=== PATIENT | female | born 1955 | race Caucasian/White ===

== ENCOUNTER 2016-11-22 06:05 | Inpatient (IN) | payer OTHER ==
[2016-11-03 13:50] VITALS: BMI 38.0
--- NOTE | 2016-11-03 14:16 | PAT Medication Instructions ---
Service Date Nov 03, 2016. Current Home Medication List Acetaminophen/Codeine (Tylenol W/Codeine #3), 2 TAB PO QID PRN for Pain Rosuvastatin Calcium (Crestor), 10 MG PO HS Medication Instructions For Your Scheduled Surgery - Take the following medications the morning of surgery with a sip of water: Acetaminophen/Codeine (Tylenol W/Codeine #3), 2 TAB PO QID PRN for Pain (can take up to four hours prior to surgery if needed) Tylenol (if needed) - Take the following medications as scheduled the night before surgery: Acetaminophen/Codeine (Tylenol W/Codeine #3), 2 TAB PO QID PRN for Pain Rosuvastatin Calcium (Crestor), 10 MG PO HS Tylenol (if needed) If you have any questions please call us at [phone] or [phone] ( [place]) or [phone]
[2016-11-03 14:38] LABS: BASO % 0.6 %; BASO ABS # 0.03 K/uL (0-0.2); COMPLETE YES; EOS % 3.7 %; HEMATOCRIT 41.9 % (37-47); IG% 0.2 %; LYMPH % 33.8 %; LYMPH ABS # 1.66 K/uL (1.2-3.4); MEAN CELL VOLUME 90.5 fL (80-100); MEAN CORPUSCULAR HEMOGLOBIN 32.4 pg (25-34); MEAN CORPUSCULAR HGB CONC 35.8 g/dl (32-36); MEAN PLATELET VOLUME 12.1 fL (7.4-10.4); MONO % 7.3 %; NEUT % 54.4 %; PLATELET COUNT 158 K/uL (130-400); RED BLOOD COUNT 4.63 M/uL (4.2-5.4); WHITE BLOOD COUNT 4.91 K/uL (4.8-10.8)
[2016-11-03 14:47] LABS: INR 1.1 (0.9-1.1); PARTIAL THROMBOPLASTIN RATIO 1.1; PROTHROMBIN TIME (PATIENT) 11.5 SECONDS (9.0-12.0)
[2016-11-03 14:54] LABS: BUN/CREATININE RATIO 12.8 (10-20); CREATININE 0.69 mg/dl (0.60-1.20); POTASSIUM 3.6 mmol/L (3.5-5.1)
[2016-11-03 14:57] LABS: URINE APPEARANCE CLEAR (CLEAR); URINE BILIRUBIN NEG (NEG); URINE COLOR YELLOW; URINE NITRITE NEG (NEG); URINE SPECIFIC GRAVITY 1.019 (1.000-1.030); UROBILINOGEN NEG (NEG); ZZUR CULT IF INDIC CLEAN CATCH NO
[2016-11-03 15:04] LABS: MANUAL MICROSCOPIC REQUIRED? NO; REVIEW REQ? NO
[2016-11-03 15:08] LABS: CALCIUM 9.9 mg/dl (8.5-10.1)
[2016-11-04 06:32] LABS: ESTIMATED AVERAGE GLUCOSE 117 mg/dl; HA1C FLAG Normal (Normal)
--- NOTE | 2016-11-21 14:22 | HISTORY & PHYSICAL EXAMINATION ---
DATE OF ADMISSION: 11/22/2016 CHIEF COMPLAINT: Left knee pain. HISTORY OF PRESENT ILLNESS: Imani is a 61-year-old female with a 5-year history of left knee pain. She rates her pain 10/10. She has pain with her daily activities. She has limited standing and walking tolerance. Pain is worse with weightbearing. The patient has had injections, bracing and home exercise program and Tylenol over the years without relief. She has failed conservative treatment and is scheduled for left knee replacement. PAST MEDICAL HISTORY: Hypercholesterolemia. She denies heart disease, diabetes or DVT. PAST SURGICAL HISTORY: Hysterectomy, right knee replacement and melanoma excision. SOCIAL HISTORY: The patient denies alcohol or tobacco use. She lives in a single home. She is and works as a customer training specialist. FAMILY HISTORY: Negative for DVT. MEDICATIONS: Rosuvastatin 10 mg, Tylenol #3 p.r.n. ALLERGIES: TAPE. REVIEW OF SYSTEMS: See HPI. Ten other systems reviewed and all are negative. PHYSICAL EXAMINATION: VITAL SIGNS: Height 5 foot 6 inches, weight 243 pounds, BMI is 39. GENERAL: This is a well-developed, well-nourished female who is alert and oriented x3. Mood and affect are appropriate. HEAD, EYES, EARS, NOSE, AND THROAT: Normocephalic, atraumatic. Mucous membranes are moist and intact. NECK: Supple without lymphadenopathy. HEART: Regular rate and rhythm without murmurs, rubs or gallops. LUNGS: Clear to auscultation without wheezes or rhonchi. ABDOMEN: Soft and nontender. Bowel sounds are equal and active. EXTREMITIES: No ecchymosis, redness or warmth. Thigh and calf are soft and nontender. She has neutral alignment. Range of motion is from 0-115 degrees with no laxity. She is neurovascularly intact with +5/5 strength. X-RAY EXAMINATION: AP and lateral views show joint space narrowing and osteophyte formation in the medial compartment. IMPRESSION: Degenerative joint disease left knee. PLAN: The patient will be admitted for a left total knee arthroplasty. We will plan on aspirin for DVT prophylaxis. PCP is Dr. Ponce at [facility]. She will have [facility] for home physical therapy.
[~2016-11-22] VITALS: Ht 167.6 cm; Wt 111.1 kg
[2016-11-22] VITALS (9 sets, daily range): BP systolic 104–151; BP diastolic 61–86; PULSE 60–76; TEMP 36.4–36.8; O2SAT 93–97; Ht 167.6 cm; Wt 111.1 kg
[~2016-11-22 06:05] MED LIST: ACET-749 PO; ACETAMINOPHEN 500 MG TAB PO SCH; CEFAZOLIN 2000 MG/60 ML D5W 60 ML IV SCH; CRS/10 PO; CeleBREX 200 MG CAP PO SCH; DEXAMETHASONE 4 MG TAB PO SCH; FAMOTIDINE 20 MG TAB PO SCH; GABAPENTIN 300 MG CAP PO SCH; LACTATED RINGER'S 1000ML 1,000 ML IV SCH; LACTATED RINGER'S 1000ML 500 ML IV ONE; LACTATED RINGER'S 1000ML IV SCH; METOCLOPRAMIDE HCL 10 MG TAB PO SCH; OXYCODONE HCL 10 MG TABCR (OXYCONTIN) PO SCH; POLYMYXIN B SULFATE 100,000 UNITS in NSS 100ML IR SCH; ROPIVACAINE 5MG/ML 30 ML 150 MG, BUPIVACAINE/EPINEPHR 0.5% MPF 30 ML, KETOROLAC TROMETH... INFIL SCH; VANCOMYCIN INJ 400 MG in NSS 100ML IR SCH
[2016-11-22] MEDS ORDERED: BUPIVACAINE 0.5 % 5 MG/1 ML PF 10ML VIAL ONE (06:32)
[2016-11-22] MEDS ORDERED: BUPIVACAINE 0.25% 30 ML VIAL ONE (06:33)
[2016-11-22] MEDS ORDERED: FENTANYL CITRATE INJ 50 MCG/1 ML 2 ML VIAL ONE (06:40)
[2016-11-22] MEDS ORDERED: MIDAZOLAM HCL 1 MG/ML 2ML VIAL ONE (06:40)
--- NOTE | 2016-11-22 07:04 | History & Physical Bridge Note ---
H&P Re-Evaluation Bridge Note: I have examined the patient, reviewed the History & Physical and in the interval since the performance of the History & Physical I have noted the following changes of clinical significance: No changes noted
[2016-11-22] MEDS ORDERED: ORTHO JOINT ANESTHETIC ONE (07:11)
[2016-11-22] MEDS ORDERED: BUPIVACAINE/EPINEPHRINE 0.25% 1:200,000 30 ML VIAL ONE (07:11)
[2016-11-22] MEDS ORDERED: POVIDONE-IODINE OP SOLN 30 ML BTL ONE (07:11)
[2016-11-22] MEDS ORDERED: BACITRACIN 50000 UNIT VIAL ONE (07:12)
[2016-11-22] MEDS ORDERED: LACTATED RINGER'S 1000ML 1,000 ML IV PRN (07:55)
[2016-11-22] MEDS ORDERED: FENTANYL CITRATE INJ 50 MCG/1 ML 2 ML VIAL IV PRN (08:00)
[2016-11-22] MEDS ORDERED: ONDANSETRON INJ 2 MG/ML 2 ML VIAL IV PRN ×2 (08:00→10:00)
[2016-11-22] MEDS: TRANEXAMIC ACID INJ 1,000 MG in SODIUM CHLORIDE 0.9% 100ML 100 ML IV SCH ×2 (08:10→10:26)
[2016-11-22] MEDS ORDERED: METOPROLOL TARTRATE 1 MG/ML VIAL ONE (09:18)
[2016-11-22] MEDS ORDERED: PROPOFOL IV EMULSION 10 MG/ML 20 ML VIAL IV ONE (09:18)
[2016-11-22] MEDS ORDERED: LIDOCAINE HCL 2% 2 ML VIAL (20MG/ML) ONE (09:18)
[2016-11-22] MEDS ORDERED: LABETALOL HCL IV 5 MG/ML 20ML IV ONE (09:18)
--- NOTE | 2016-11-22 09:56 | [facility] Post Operative Brief Note ---
Immediate Operative Summary Operative Date November 22, 2016. Pre-Operative Diagnosis Left Knee Degenerative Joint Disease Post-Operative Diagnosis Left Knee Degenerative Joint Disease MORBID OBESITY Procedure(s) Performed Left Total Knee Arthroplasty, Cemented Surgeon Dr. Adam Garza Director Pharmaceutical Surgeon(s) Cain Rivera PA-C Estimated Blood Loss 100 mL Findings DJD OBESE Specimens A: Left Knee Bone and Tissue Complication(s) None Disposition Recovery Room / PACU
[2016-11-22] MEDS ORDERED: SOD PHOSPHATE/SOD BIPHOSPHATE ENEMA 132 ML BTL PR PRN (10:00)
[2016-11-22] MEDS ORDERED: ALUMINUM/MAGNESIUM/SIMETH (MAALOX MAX) 30 ML UDC PO PRN (10:00)
[2016-11-22] MEDS ORDERED: METOCLOPRAMIDE HCL INJ 5 MG/ML 2 ML VIAL IV PRN (10:00)
[2016-11-22] MEDS ORDERED: KETOROLAC TROMETHAMINE 30 MG/ML VIAL IV. PRN (10:00)
[2016-11-22] MEDS ORDERED: ZOLPIDEM TARTRATE 5 MG TAB PO PRN (10:00)
[2016-11-22] MEDS ORDERED: MoRPHine SULFATE 2 MG/ML CARP IV PRN (10:00)
[2016-11-22] MEDS ORDERED: MAGNESIUM HYDROXIDE SUSP 30 ML UDC PO PRN (10:00)
[2016-11-22] MEDS ORDERED: DiphenhydrAMINE HCL 50 MG/ML VIAL IV PRN (10:00)
[2016-11-22] MEDS ORDERED: TRAMADOL HCL 50 MG TAB PO PRN (10:00)
[2016-11-22] MEDS ORDERED: OXYCODONE HCL IR 5 MG TAB (IMMEDIATE RELEASE) PO PRN (10:00)
[2016-11-22] MEDS ORDERED: BISACODYL 10 MG SUPP PR PRN (10:00)
--- NOTE | 2016-11-22 11:05 | DIAGNOSTIC IMAGING REPORT ---
LEFT KNEE 1 OR 2 VIEWS ROUTINE CLINICAL HISTORY: AP/LATERAL IN PACU LEFT KNEE joint replacement COMPARISON: None. DISCUSSION: Status post total left knee replacement. Good contact between prosthetic and Bone. Surgical drains are in position. There is no evidence for soft tissue swelling. IMPRESSION: Anatomic alignment status post total left knee replacement. Electronically signed by: Severo Ellsworth M.D. 11/22/2016 11:04 AM Dictated Date/Time: 11/22/2016 11:03 AM
--- NOTE | 2016-11-22 11:54 | Anesthesiology Progress Note ---
Anesthesia Post Op Note Date & Time November 22, 2016 at 11:54 Vital Signs Pain Intensity: 0 Vital Signs Past 12 Hours Date Time Temp Pulse Resp B/P Pulse Ox O2 Delivery O2 Flow Rate FiO2 11/22/16 11:30 64 18 122/69 95 Nasal Cannula 3 11/22/16 11:20 36.7 63 18 130/60 95 Nasal Cannula 3 11/22/16 11:10 62 18 130/65 98 Nasal Cannula 3 11/22/16 11:00 61 18 117/61 98 Mask 5 11/22/16 10:50 60 16 109/60 98 Mask 10 11/22/16 10:40 37.0 73 16 125/64 98 Mask 10 11/22/16 06:53 36.8 76 18 151/86 96 Room Air Notes Mental Status: alert / awake / arousable, participated in evaluation Pt Amnestic to Procedure: No (recall as expected) Nausea / Vomiting: adequately controlled Pain: adequately controlled Airway Patency, RR, SpO2: stable & adequate BP & HR: stable & adequate Hydration State: stable & adequate Neuraxial Anesthesia: was administered, sensory block is resolving Anesthetic Complications: no major complications apparent
[2016-11-22] MEDS: D5W AND 1/2NSS + 20MEQ KCL 1,000 ML IV SCH ×2 (13:21→21:20)
[2016-11-22] MEDS: ACETAMINOPHEN 500 MG TAB PO SCH ×2 (13:21→21:20)
[2016-11-22] MEDS: CEFAZOLIN IV 2,000 MG in DEXTROSE 5% 50ML 50 ML IV SCH ×2 (15:33→23:53)
[2016-11-22] MEDS ORDERED: TRANEXAMIC ACID INJ 1,000 MG in SODIUM CHLORIDE 0.9% 100ML 100 ML IV SCH (16:00)
--- NOTE | 2016-11-22 17:40 | OPERATIVE REPORT ---
DATE OF OPERATION: 11/22/2016 PREOPERATIVE DIAGNOSES: 1. Degenerative arthritis left knee. 2. Morbid obesity, body mass index 40. POSTOPERATIVE DIAGNOSES: Same. PROCEDURE: Left total knee patient matched implant. SURGEON: Dr. Garza. AIR BRUSH DECORATOR: KILEY Maynard ANESTHESIA: Spinal. BLOOD LOSS: 100 mL. REPLACEMENT FLUIDS: 1500 mL crystalloid. DRAINS: Hemovac x2. CULTURES: None. COMPLICATIONS: None. COMPONENTS USED: [employer] Journey Knee System: Femur size 5, tibia size 5 x 12, patella size 35. NOTE: Cain Rivera was present and assisted throughout due to the complicated nature of this case. He helped with preparation and set up, first assisted throughout and personally closed the capsule, subcutaneous and skin layers and applied the postoperative dressing. DESCRIPTION OF PROCEDURE: Following satisfactory spinal, the patient was supine. A tourniquet was placed but not inflated. The lower extremity was prepared with ChloraPrep and draped sterilely. Following a surgical time-out, an anterior approach to the knee was performed. The approach was difficult because of a very large subcutaneous fat layer. This required additional time and effort to expose the capsular layer. A median parapatellar arthrotomy was exposed with difficulty and the knee showed marked grade 4 changes throughout. The cruciate ligaments were excised. The patient matched femoral block was applied. Femoral distal rotation and resection were set and completed. The 4-in-1 block was used to finish preparation of the femur. The patient matched tibial block was applied. Tibial resection was completed. The patella was freehand cut and soft tissue balancing was completed. A trial reduction showed good tensioning stability on the collateral ligaments, stable range of motion, and the patella tracked well. The trial components were removed. The capsule was prepared with the orthopedic cocktail and after irrigation, the components were cemented using Simplex G cement. When the cement had hardened, the knee was checked and showed good stability. After irrigation, a Betadine soak had been performed and then irrigated. Two drains were placed. The arthrotomy was closed with a running suture of 0 V-Loc and reinforced with #1 Vicryl. Subcutaneous tissues were required closure in multiple layers with #1 and 2-0 Vicryl and a running subcuticular stitch of 3-0 V-Loc. A surface wound VAC was applied because of the obese nature. The patient was returned to her bed in stable condition. I attest to the content of the Intraoperative Record and any orders documented therein. Any exceptio ns are noted below.
[2016-11-22] MEDS ORDERED: ROSUVASTATIN CALCIUM 10 MG TAB PO SCH (21:00)
[2016-11-22] MEDS ORDERED: SENNA 8.6 MG TAB PO SCH (21:00)
[2016-11-22] MEDS: OXYCODONE HCL 10 MG TABCR (OXYCONTIN) PO SCH (21:19)
[2016-11-22] MEDS: ASPIRIN 81 MG ECTAB PO SCH (21:20)
[2016-11-23 04:08] VITALS: BP 123/63; PULSE 61; TEMP 36.6; O2SAT 96
[2016-11-23] MEDS: ACETAMINOPHEN 500 MG TAB PO SCH (05:48)
[2016-11-23 05:54] LABS: MEAN CELL VOLUME 93.8 fL (80-100); MEAN CORPUSCULAR HEMOGLOBIN 32.9 pg (25-34); MEAN CORPUSCULAR HGB CONC 35.1 g/dl (32-36); MEAN PLATELET VOLUME 11.6 fL (7.4-10.4); PLATELET COUNT 158 K/uL (130-400); RED BLOOD COUNT 4.16 M/uL (4.2-5.4); WHITE BLOOD COUNT 15.07 K/uL (4.8-10.8)
[2016-11-23 06:27] LABS: BUN/CREATININE RATIO 13.7 (10-20); CALCIUM 8.9 mg/dl (8.5-10.1); CREATININE 0.79 mg/dl (0.60-1.20)
[2016-11-23 06:59] VITALS: BP 118/74; PULSE 65; TEMP 36.4; O2SAT 96
--- NOTE | 2016-11-23 07:46 | Orthopedic Progress Note ---
Orthopedic Progress Note Date of Service November 23, 2016. Subjective Post OP Day: 1 Reports: feeling well, Denies: SOB, calf pain, chest pain, light headedness, nausea / vomiting Objective calves soft nontender, N/V intact, dressing C/D/I, A&O x3, toes mobile, hemovac drainage (315/150CC PER SHIFT) Date Time Temp Pulse Resp B/P Pulse Ox O2 Delivery O2 Flow Rate FiO2 11/23/16 06:59 36.4 65 20 118/74 96 Room Air 11/23/16 04:08 36.6 61 18 123/63 96 Room Air 11/22/16 23:33 36.6 66 18 104/66 95 Room Air 11/22/16 19:30 Nasal Cannula 2.0 11/22/16 18:44 36.4 67 18 105/61 97 Nasal Cannula 2.0 11/22/16 15:30 Nasal Cannula 2.0 11/22/16 15:27 36.4 74 17 123/71 97 Nasal Cannula 2.0 11/22/16 14:40 64 16 111/63 97 11/22/16 13:40 36.5 73 16 106/64 97 Nasal Cannula 2.0 11/22/16 12:47 60 18 115/67 97 11/22/16 12:20 62 18 121/71 96 11/22/16 11:40 Nasal Cannula 2.0 11/22/16 11:40 36.5 72 16 113/70 93 Nasal Cannula 2.0 11/22/16 11:40 Nasal Cannula 2.0 11/22/16 11:30 64 18 122/69 95 Nasal Cannula 3 11/22/16 11:20 36.7 63 18 130/60 95 Nasal Cannula 3 11/22/16 11:10 62 18 130/65 98 Nasal Cannula 3 11/22/16 11:00 61 18 117/61 98 Mask 5 11/22/16 10:50 60 16 109/60 98 Mask 10 11/22/16 10:40 37.0 73 16 125/64 98 Mask 10 Laboratory Results 24 Hours: Test 11/23/16 05:25 Hematocrit 39.0 % Hemoglobin 13.7 g/dL Assessment & Plan Assessment: POD#1 SP LEFT TKA Inhouse Planning Pain Management: Celebrex, Oxycontin, PO Tylenol, Oxy IR DVT Prophylaxis: TEDs, SCDs, ASA Discharge Planning Discharge Planning: home with home health ([facility] HOME TODAY [facility])
--- NOTE | 2016-11-23 07:49 | Discharge Instructions ---
Discharge Instructions Date of Service November 23, 2016. Admission Reason for Admission: Left Knee Degenerative Arthritis Discharge Discharge Diagnosis / Problem: SP LEFT TKA Discharge Goals Goal(s): Decrease discomfort, Improve function, Increase independence Activity Recommendations Activity Limitations: per Instructions/Follow-up section . Instructions / Follow-Up Instructions / Follow-Up ACTIVITY RECOMMENDATIONS: SELF CARE INSTRUCTIONS AFTER TOTAL KNEE REPLACEMENT A. You may need to continue a physical therapy program after discharge from the hospital. There are several options available to you. Your doctor will assist you in selecting the best one for you. 1. An out-patient facility 2 to 3 times a week for therapy or home therapy. 2. Continue working on all exercises taught to you in the hospital. Your goals should be to increase bending of your knee to 90 degrees and beyond and to fully straighten your knee. B. You may progress at your own pace from walking with a walker or crutches to a cane; then to no assistive devices. C. Make walking a part of your daily routine. Be up as much as comfortable with rest periods throughout the day. Rest with leg elevation is very important. Use the ice wrap frequently for the first 3-4 weeks. D. There are no restrictions on activities. You may ride in a car, shop, participate in cold mill inspector and all social activities. E. Wear the long elastic stockings (LOTUS hose) 20 hours a day for 2 weeks after surgery. They can be removed several times a day for laundering and for a bath. F. You may shower, no tub baths until cleared by your doctor. SPECIAL CARE INSTRUCTIONS: VERY IMPORTANT TO READ AND REVIEW A. There are a few signs you need to watch for after you are home. Call [facility] [place] if you notice any of the followin. Increased severe knee pain. Some pain is expected especially when you exercise. 2. Increased swelling in your leg or knee; pain or swelling of the calf muscle in either lower leg. 3. Any fluid drainage from the incision. 4. Shortness of breath or chest pain. B. Please call [facility] [place] at if you have any concerns or questions about your operation or recovery. The doctor or his nurse will return your call promptly. C. You must take antibiotics before dental work, bladder, bowel or other surgery. Your doctor will provide you with a permanent care to carry describing this precaution. IMPORTANT: * REMEMBER TO TAKE ASPIRIN, 81 MG, TWICE DAILY FOR 4 WEEKS UNLESS OTHERWISE DIRECTED. THIS IS YOUR BLOOD THINNER. * HIGH RISK PATIENTS MAY BE PRESCRIBED A STRONGER BLOOD THINNER. THIS WILL BE PROVIDED AT DISCHARGE. * CALL IF INCREASED PAIN, REDNESS, DRAINAGE OR FEVER GREATER THAT 101. * WEAR LOTUS HOSE 20 HOURS PER DAY FOR 2 WEEKS. DERMABOND Prineo- This is a mesh tape dressing that is covered with glue. It should remain in place until the incision is properly healed, usually 10-14 days. This dressing is designed to naturally slough off. You may trim the excess mesh tape as it peels off. Incision may be briefly wet in a shower. Dry immediately by blotting with a clean, dry towel. Do not bath or swim until instructed by your doctor. Do not scratch, rub, or pick at the dressing. Do not apply any topical ointments or lotions until dressing is completely removed and/or instructed by your doctor. There may be a small piece of suture material at one end of your incision. Do not pull or trim this. If it is bothersome or catching on clothing, you may cover it with a band-aid. FOLLOW UP VISIT: If appointment is not already scheduled: Please call [facility] [place] to make a follow-up appointment for 2 weeks after your surgery at . Current Hospital Diet Patient's current hospital diet: Regular Diet Discharge Diet Recommended Diet: Regular Diet Procedures Procedures Performed: Left Total Knee Arthroplasty, Cemented Pending Studies Studies pending at discharge: no Laboratory Results Hemoglobin A1c Test 11/03/16 13:43 Range/Units Estimated Average Glucose 117 mg/dl Hemoglobin A1c 5.7 H 4.5-5.6 % Medical Emergencies . Who to Call and When: Medical Emergencies: If at any time you feel your situation is an emergency, please call 911 immediately. . Non-Emergent Contact Non-Emergency issues call your: Surgeon . "Provider Documentation" section prepared by Sarah Akins. . VTE Core Measure Inpt VTE Proph given/why not?: Other Anticoagulation, T.E.D. Stockings, SCD's [place] Drug Monitoring Program Search Results: patient reviewed within database, no issues identified
[2016-11-23] MEDS ORDERED: CLB200 PO (07:51)
[2016-11-23] MEDS ORDERED: ACET-1138 PO (07:51)
[2016-11-23] MEDS ORDERED: ONDA8TAB6 PO (07:51)
[2016-11-23] MEDS ORDERED: SNK PO (07:51)
[2016-11-23] MEDS ORDERED: MORP-157 PO (07:51)
[2016-11-23] MEDS ORDERED: ASPEC81 PO (07:51)
[2016-11-23] MEDS ORDERED: RXC5 PO (07:51)
[2016-11-23] MEDS: D5W AND 1/2NSS + 20MEQ KCL 1,000 ML IV SCH (08:03)
[2016-11-23 08:08] VITALS: BP_SYST 116; BP_DIAS 72; BP_DIAS 73; PULSE 60; TEMP 36.3; O2SAT 95
[2016-11-23] MEDS: ASPIRIN 81 MG ECTAB PO SCH (08:37)
[2016-11-23] MEDS: OXYCODONE HCL 10 MG TABCR (OXYCONTIN) PO SCH (08:37)
[2016-11-23 08:44] VITALS: BP 116/72; PULSE 60; TEMP 36.3; O2SAT 95
[2016-11-23] MEDS ORDERED: PANTOprazole SOD 40 MG TAB PO SCH (09:00)
[2016-11-23] MEDS ORDERED: MULTIVITAMIN TAB PO SCH (09:00)
[2016-11-23 11:39] VITALS: BP 118/68; PULSE 72; TEMP 36.5; O2SAT 96
--- NOTE | 2016-11-23 13:13 | Anesthesiology Progress Note ---
Anesthesia Post Op Note Date & Time November 23, 2016 at 13:13 Vital Signs Pain Intensity: 0.0 Vital Signs Past 12 Hours Date Time Temp Pulse Resp B/P Pulse Ox O2 Delivery O2 Flow Rate FiO2 11/23/16 11:39 36.5 72 13 118/68 96 Room Air 11/23/16 08:44 36.3 60 13 95 Room Air 11/23/16 08:08 36.3 60 13 116/72 95 Room Air 11/23/16 08:07 Room Air 11/23/16 06:59 36.4 65 20 118/74 96 Room Air 11/23/16 04:08 36.6 61 18 123/63 96 Room Air Notes Mental Status: alert / awake / arousable, participated in evaluation Pt Amnestic to Procedure: Yes Nausea / Vomiting: adequately controlled Pain: adequately controlled Airway Patency, RR, SpO2: stable & adequate BP & HR: stable & adequate Hydration State: stable & adequate Neuraxial Anesthesia: sensory block resolved Anesthetic Complications: no major complications apparent
[2016-11-24] MEDS ORDERED: CeleBREX 200 MG CAP PO SCH (10:00)
--- NOTE | 2016-11-29 08:02 | Discharge Summary ---
Orthopedic Discharge Summary Admission Date/Reason November 22, 2016 at 06:35 Left Knee Degenerative Arthritis. Discharge Date/Disposition November 23, 2016 Home with services Diagnosis Principal Diagnosis: Left Knee Djd Secondary Diagnoses/Problems: Hypercholesterolemia Procedure(s) Performed Left TKA Medication Reconciliation New Medications: Morphine Sulfate (Ms Contin) 15 Mg Tab 15 MG PO Q12, #20 TAB Ondansetron Hcl (Zofran) 8 Mg Tab 8 MG PO Q8 PRN for Nausea, #20 TAB Acetaminophen (Tylenol Extra Strength) 500 Mg Tab 1000 MG PO Q8 for 30 Days, #180 TAB Aspirin (Aspirin EC Low Dose) 81 Mg Ectab 81 MG PO BID for 30 Days Celecoxib (Celebrex) 200 Mg Cap 200 MG PO BID for 30 Days, #60 CAP Oxycodone HCl (Oxycodone HCl) 5 Mg Tab 5-10 MG PO Q4H PRN for Pain, #60 TAB Senna (Senna Lax) 8.6 Mg Tab 17.2 MG PO HS for 14 Days, TAB Continued Medications: Rosuvastatin Calcium (Crestor) 10 Mg Tab 10 MG PO HS, TAB Discontinued Medications: Acetaminophen/Codeine (Tylenol W/Codeine #3) 300 Mg/30 Mg Tab 2 TAB PO QID PRN for Pain, TAB Admission Physical Exam As per Admitting History & Physical. Hospital Course The Patient had an uneventful hospital course. Labs remained stable- lowest hemoglobin recorded: 13.7 . Pain controlled on oral medications. Participated in PT with ambulation distance of 325 feet. ROM of operative knee reached 95 degrees. Drainage output totaled 590 cc prior to discontinuation. Patient did have a reported bowel movement. Incision remained clean/dry/intact. DVT prophylaxis with Aspirin EC 81mg BID x 30 days/Hermelindo stockings. Patient discharged home with Home Health Services in stable condition. Please refer to daily progress notes for further details. Discharge Instructions Please refer to the electronic Patient Visit Report (Discharge Instructions) for additional information.
== END 2016-11-23 13:35 | disposition home or self-care (01) | DRG 470 ==
LOC: ENRESERVDT → ENRESERVTM → C.ACU 06:05 → C.3E 06:35
PROVIDERS: ADMIT Orthopaedic Surgery; ATTEND Orthopaedic Surgery
PROC: 0SRD0J9 Replacement of Left Knee Joint with Synthetic Substitute, Cemented, Open Approach (ICD-10-PCS; principal; 2016-11-22 08:30)
DX: M17.9 Osteoarthritis of knee, unspecified (principal); Z68.41 Body mass index [BMI] 40.0-44.9, adult; E78.00 Pure hypercholesterolemia, unspecified; Z90.710 Acquired absence of both cervix and uterus; Z96.651 Presence of right artificial knee joint; E66.01 Morbid (severe) obesity due to excess calories